=== PATIENT | male | born 1990 | race Two or more races ===

== ENCOUNTER 2020-01-01 19:07 | Emergency (ER) | payer SELFPAY ==
[~2020-01-01] VITALS: Ht 167.6 cm; Wt 61.2 kg
--- NOTE | 2020-01-01 19:10 | NUR ---
ED Nurse Note: Patient was BIBA from friend's house due to anxiety. Patient presented anxious, not cooperative, AAO x4, HR 114, other VSS at this time.
[2020-01-01 19:20] VITALS: BP 137/76
[2020-01-01] MEDS ORDERED: LORazepam 0.5mg tab ORAL ONE (19:30)
--- NOTE | 2020-01-01 19:43 | NUR ---
ED Nurse Note: Patient refused to take Ativan, stated " I take only herbs meds."
--- NOTE | 2020-01-01 19:44 | NUR ---
ED Nurse Note: Will return Ativan to the pyxes
--- NOTE | 2020-01-01 19:45 | NUR ---
ED Nurse Note: Patient refused EKG
--- NOTE | 2020-01-01 19:53 | Emergency Room Report ---
History of Present Illness General Chief Complaint: Palpitations Source: Patient Present Illness HPI 29-year-old male presents to the emergency department complaining of episode of palpitations, severe anxiety, and hyperventilation after smoking marijuana. Patient reports that he does not have any significant past medical history Denies cardiac history. No significant disorders in his family. He reports feeling a cold sweat and numbness in bilateral hands which has resolved now. Patient denies chest pain. Patient denies cough, wheezing, syncope, headache, changes in vision or loss of vision. Pt. has no other complaints at this time other than feeling anxious. He denies SOB or dyspnea at this time. Allergies: Coded Allergies: No Known Allergies (Unverified , 01/01/20) Patient History Past Medical History: see triage record Past Surgical History: none Pertinent Family History: none Social History: Reports: drug use - THC Reviewed Nursing Documentation: PMH: Agreed; PSxH: Agreed Nursing Documentation-PM Past Medical History: No Stated History Review of Systems All Other Systems: negative except mentioned in HPI Physical Exam Vital Signs Date Time Temp Pulse Resp B/P (MAP) Pulse Ox O2 Delivery O2 Flow Rate FiO2 01/01/20 19:02 98.2 115 20 137/76 (96) 96 Room Air Sp02 EP Interpretation: reviewed, normal General Appearance: no apparent distress, alert, GCS 15, non-toxic Head: normocephalic, atraumatic Eyes: bilateral eye normal inspection, bilateral eye PERRL, bilateral eye other - eyes are bloodshot bilaterally ENT: hearing grossly normal, normal voice Neck: full range of motion Respiratory: chest non-tender, lungs clear, normal breath sounds, no respiratory distress, no wheezing, speaking full sentences Cardiovascular #1: no edema, tachycardia Gastrointestinal: non tender, soft Musculoskeletal: normal range of motion, gait/station normal, non-tender Neurologic: alert, motor strength/tone normal, oriented x3, sensory intact, responsive, speech normal Psychiatric: judgement/insight normal Skin: normal color, normal inspection Medical Decision Making PA Attestation Dr. Bruno is my supervising Physician whom patient management has been discussed with. Diagnostic Impression: Primary Impression: Anxiety reaction Additional Impression: Marijuana use ER Course 29-year-old male presents to the emergency department complaining of episode of palpitations, severe anxiety, and hyperventilation after smoking marijuana. Patient reports that he does not have any significant past medical history Denies cardiac history. No significant disorders in his family. He reports feeling a cold sweat and numbness in bilateral hands which has resolved now. Patient denies chest pain. Patient denies cough, wheezing, syncope, headache, changes in vision or loss of vision. Pt. has no other complaints at this time other than feeling anxious. He denies SOB or dyspnea at this time. Ddx considered but are not limited to anxiety, [place], PE, asthma, thyroid storm, hyperthyroid, EPS Vital signs: are WNL, pt. is afebrile H&PE are most consistent with anxiety attack secondary to THC use. in a patient with low cardiac RF's ORDERS: -EK NSR ED INTERVENTIONS: -- 0.5mg Ativan Pt. refuses medications Pt. wants to be d/c and go home. He wants to only do herbal remedies. DISCHARGE: At this time pt. is stable for d/c to home. Will provide printed patient care instructions, and any necessary prescriptions. Care plan and follow up instructions have been discussed with the patient prior to discharge. EKG Diagnostic Results EP Interpretation: Dr. Bruno Rate: normal - 81 bpm Rhythm: NSR ST Segments: no acute changes ASA given to the pt in ED: No PA Scribe Text This Interpretation was scribed by JAYCOB Prater. Last Vital Signs Date Time Temp Pulse Resp B/P (MAP) Pulse Ox O2 Delivery O2 Flow Rate FiO2 01/01/20 19:20 98.2 20 137/76 96 Room Air 01/01/20 19:02 115 Status: improved Disposition: HOME, SELF-CARE Condition: Stable Referrals: [facility] Patient Instructions: Hyperventilation Additional Instructions: Continue use of marijuana as this may be causing her symptoms. Take medications as directed. Follow up with a Primary Care Provider in 3-5 days, even if your symptoms have resolved. --Please review list of primary care clinics, if you do not already have a primary care provider Return sooner to ED if new symptoms occur, or current symptoms become worse. - Please note that this Emergency Department Report was dictated using [employer] foreman technology software, occasionally this can lead to erroneous entry secondary to interpretation by the dictation equipment. Shelly Prater Jan 01, 2020 19:53
[2020-01-01 20:01] VITALS: BP 137/76
--- NOTE | 2020-01-01 20:08 | NUR ---
ED Nurse Note: Pt cleared by health care Provider for discharge. DC instructions/prescription was given and explained to a patient, and patient refused any type of care, also patient refused to sign DC paper. All medical deviecs such as ID band removed. Pt is AAO x4, ambulatory and left with all personal belongings.
== END 2020-01-01 20:01 | disposition home or self-care (01) ==
LOC: EDBD 19:07 → EMR 19:21
DX: F41.9 Anxiety disorder, unspecified (principal); F12.90 Cannabis use, unspecified, uncomplicated; R20.0 Anesthesia of skin
CPT/HCPCS: 93005; 99283